=== PATIENT | male | born 1980 | race Two or more races ===

== ENCOUNTER 2019-02-03 16:20 | Emergency (ER) | payer MEDICAID ==
[~2019-02-03] VITALS: Ht 167.6 cm; Wt 90.0 kg
[2019-02-03] MEDS ORDERED: FENTANYL CITRATE/PF 50MCG/ML 2ML VIAL IV ONE (16:30)
[2019-02-03 17:03] LABS: BASOPHILS % 0.5 % (0.0-2.0); EOSINOPHILS % 11.1 % (0.0-5.0); HEMATOCRIT. 48.4 % (42.0-52.0); HEMOGLOBIN. 16.4 g/dL (14.0-18.0); MEAN CORPUSCULAR HEMOGLOBIN 28.2 pg (28.0-32.0); MEAN PLATELET VOLUME 8.9 fl (7.4-10.4); MONOCYTES % 8.7 % (2.0-8.0); NEUTROPHILS % 61.7 % (40.0-76.0); PLATELET 369 x1000/uL (130-400); RED BLOOD CELL COUNT 5.84 mill/uL (4.7-6.1); RED CELL DISTRIBUTION WIDTH 14.2 % (11.6-14.6)
[2019-02-03 17:06] LABS: CHLORIDE 106 mEq/L (98-107)
[2019-02-03] MEDS ORDERED: IOHEXOL-300 100 ML BOTTLE ONE (17:24)
[2019-02-03] MEDS ORDERED: MORPHINE SULFATE 4 MG/ML CPJ (NOT FOR IM USE) IV ONE (19:45)
[2019-02-03 21:30] VITALS: BP 140/73
== END 2019-02-03 21:28 | disposition short-term general hospital (02) ==
LOC: ER 16:20
DX: S82.092A Other fracture of left patella, initial encounter for closed fracture (principal); S00.83XA Contusion of other part of head, initial encounter; M54.2 Cervicalgia; M54.9 Dorsalgia, unspecified; R11.10 Vomiting, unspecified; R45.1 Restlessness and agitation; R53.1 Weakness; W13.2XXA Fall from, out of or through roof, initial encounter; Y93.89 Activity, other specified; Y92.098 Other place in other non-institutional residence as the place of occurrence of the external cause
CPT/HCPCS: 36415; 70450; 71260; 72125; 73030; 73552; 73560; 74177; 80048; 85025; 93005; 96374; 96375; 99285; J2270; J3010; Q9967